=== PATIENT | female | born 2000 | race African-American/Black ===

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

== ENCOUNTER 2022-02-25 09:20 | Emergency (ER) | payer OTHER ==
[~2022-02-25] VITALS: Ht 180.3 cm; Wt 75.7 kg
[2022-02-25 09:27] VITALS: BP 116/70
--- NOTE | 2022-02-25 09:31 | NUR ---
AMBULATED TO BED 11
--- NOTE | 2022-02-25 09:47 | NUR ---
22 Y/O FEMALE BIB SELF C/O RIGHT BIG TOE PAIN, DENIES ANY TRAUMA/INJURY. PER PT POSSIBLE INGROWN, DENIES INJURY OR TRAUMA. NOTED REDNESS ON BY THE LEFT SIDE OF THE NAIL. DENIES TAKING PAIN MEDS. PMH: ASTHMA NKA
--- NOTE | 2022-02-25 09:53 | NUR ---
DR US AT BEDSIDE FOR EVAL
[2022-02-25] MEDS ORDERED: LIDOCAINE MPF 1% 10 MG/ML VIAL INJ ONE (09:55)
--- NOTE | 2022-02-25 10:04 | NUR ---
DR US AT BEDSIDE FOR PROCEDURE
[2022-02-25] MEDS ORDERED: CEPH-588 PO (10:32)
[2022-02-25] MEDS ORDERED: IBUP-2213 PO (10:32)
[2022-02-25] MEDS ORDERED: ACET-8386 PO (10:32)
--- NOTE | 2022-02-25 10:42 | NUR ---
Patient discharged with v/s stable. Written and verbal after care instructions given and explained. Patient alert, oriented and verbalized understanding of instructions. Ambulatory with steady gait. All questions addressed prior to discharge. ID band removed. Patient advised to follow up with PMD. Rx of NORCO 5-325, KELFEX, MOTRIN given. Patient educated on indication of medication including possible reaction and side effects. Opportunity to ask questions provided and answered.
== END 2022-02-25 10:42 | disposition home or self-care (01) ==
LOC: MED 09:20
DX: L60.0 Ingrowing nail (principal); J45.909 Unspecified asthma, uncomplicated
CPT/HCPCS: 11730; 99284; J2001

== ENCOUNTER 2023-03-10 14:55 | Emergency (ER) | payer BC, OTHER ==
[~2023-03-10] VITALS: Ht 180.3 cm; Wt 68.0 kg
[~2023-03-10 14:55] MED LIST: ACET-8905 PO; CEPH-588 PO; IBUP-2213 PO
[2023-03-10 15:08] VITALS: BP 125/74; PULSE 120; RESP 16; TEMP 98.9; O2SAT 98
[2023-03-10 15:55] LABS: BASOPHILS % (AUTO) 0.4 % (0.0-2.0); EOSINOPHILS # (AUTO) 0.1 K/uL (0-0.4); EOSINOPHILS % (AUTO) 1.6 % (0.0-4.0); HEMATOCRIT 38.4 % (36-48); HEMOGLOBIN 12.7 g/dL (12.0-16.0); LYMPHOCYTES # (AUTO) 1.7 K/uL (2.5-16.5); LYMPHOCYTES % (AUTO) 19.6 % (20.5-51.1); MEAN CORPUSCULAR HEMOGLOBIN 30 pg (27-31); MEAN CORPUSCULAR HGB CONC 33 g/dL (33-37); MEAN CORPUSCULAR VOLUME 89.5 fL (80-94); MONOCYTES # (AUTO) 0.4 K/uL (0.8-1.0); NEUTROPHILS # (AUTO) 6.3 K/uL (1.8-7.7); NEUTROPHILS % (AUTO) 73.4 % (42.2-75.2); PLATELET COUNT (AUTO) 176 K/uL (140-450); RED BLOOD CELL COUNT(AUTO) 4.29 MIL/uL (4.20-5.40); RED CELL DISTRIBUTION WIDTH 12.4 % (11.6-13.7); WHITE BLOOD COUNT (AUTO) 8.6 K/uL (4.8-10.8)
[2023-03-10 16:15] LABS: ANION GAP 15.3 (8-16); CALCIUM 8.7 mg/dL (8.5-10.1); CARBON DIOXIDE 25.1 mmol/L (21-32); CREATININE 0.8 mg/dL (0.6-1.3); POTASSIUM 3.4 mmol/L (3.5-5.1)
[2023-03-10 17:02] LABS: APPEARANCE,URINE CLEAR (CLEAR); BILIRUBIN,URINE 1+ (NEGATIVE); BLOOD, URINE 3+ (NEGATIVE); COLOR,URINE YELLOW (YELLOW); LEUKOCYTE ESTERASE ,URINE TRACE (NEGATIVE); NITRITE, URINE NEGATIVE (NEGATIVE); PH,URINE 6.5 (5.0-9.0); PROTEIN,URINE 1+ (NEGATIVE); UGLUCOSE NEGATIVE (NEGATIVE)
[2023-03-10] MEDS ORDERED: NITR100C1 PO (17:26)
[2023-03-10 17:31] LABS: BACTERIA,URINE FEW /HPF (None Seen); ICTOTEST NEGATIVE (NEGATIVE); RBC,URINE >20 (MANY) /HPF (0-5); SQUAMOUS EPITHELIAL CELL,UR 0-3 (FEW) /LPF (0-3 (FEW)); WBC,URINE 0-5 /HPF (0-5)
[2023-03-10 17:32] LABS: MUCUS,URINE None Seen /LPF (None Seen); TRICHOMONAS,URINE None Seen /HPF (None Seen); WHITE BLOOD CELL CASTS,URINE None Seen /LPF (None Seen); YEAST,URINE None Seen /HPF (None Seen)
[2023-03-10 17:40] VITALS: BP 119/81; PULSE 89; RESP 16; TEMP 98; O2SAT 99
== END 2023-03-10 17:40 | disposition home or self-care (01) ==
LOC: MED 14:55
DX: N93.9 Abnormal uterine and vaginal bleeding, unspecified (principal); J45.909 Unspecified asthma, uncomplicated; Z79.899 Other long term (current) drug therapy
CPT/HCPCS: 36415; 76817; 80048; 81001; 84702; 85025; 86901; 99284; Q0092

== ENCOUNTER 2023-04-21 19:31 | Emergency (ER) | payer BC ==
[~2023-04-21] VITALS: Ht 180.3 cm; Wt 70.0 kg
[~2023-04-21 19:31] MED LIST changes: +NITR100C1 PO
[2023-04-21 19:40] VITALS: BP 117/72; PULSE 117; RESP 18; TEMP 98.1; O2SAT 100
[2023-04-21 20:51] LABS: FLU A ANTIGEN negative (NEGATIVE); FLU B ANTIGEN negative (NEGATIVE)
[2023-04-21] MEDS ORDERED: TAM75 PO (21:30)
[2023-04-21] MEDS ORDERED: ONDA-188 SL (21:30)
[2023-04-21 21:44] VITALS: BP 117/72; PULSE 117; RESP 18; TEMP 98.1; O2SAT 100
== END 2023-04-21 21:44 | disposition home or self-care (01) ==
LOC: MED 19:31
DX: R11.10 Vomiting, unspecified (principal); Z20.822 Contact with and (suspected) exposure to COVID-19; R00.0 Tachycardia, unspecified; J45.909 Unspecified asthma, uncomplicated; Z79.2 Long term (current) use of antibiotics; Z79.899 Other long term (current) drug therapy; Z79.1 Long term (current) use of non-steroidal anti-inflammatories (NSAID)
CPT/HCPCS: 81025; 99283